=== PATIENT | female | born 1990 | race Caucasian/White ===

== ENCOUNTER 2017-01-24 23:16 | Emergency (ER) | payer BC ==
[2017-01-24 23:23] VITALS: BP 142/78
[2017-01-25] MEDS ORDERED: LIDOCAINE 2% VISCOUS SOLN 20 ML UDCUP PO ONE (00:44)
[2017-01-25] MEDS ORDERED: MAG HYDROX/AL HYDROX/SIMETH SUSP 30 ML UDCUP PO ONE (00:44)
[2017-01-25] MEDS ORDERED: METOCLOPRAMIDE HCL ORAL SOLN 10 MG/10 ML UDCUP PO ONE (00:44)
[2017-01-25] MEDS ORDERED: FAMOTIDINE 20 MG TABLET PO ONE (00:44)
--- NOTE | 2017-01-25 00:46 | ER Document Report ---
ED General - General Chief Complaint: Shortness Of Breath Stated Complaint: HAVING A HARD TIME BREATHING Time Seen by Provider: 01/25/17 00:27 Notes: Patient is a 26-year-old female without past medical history, no use of estrogen , no prior history of DVT or pulmonary embolus who presents with 2 months of intermittent feelings of shortness of breath. Patient clarifies that it is more like she feels like her throat is tight and she cannot get a good breath as opposed to dyspnea. Symptoms are triggered by eating and lying flat. Patient admits to significant dietary indiscretions. Nothing seems to improve her symptoms. She has not seen a primary care doctor regarding today's symptoms. She denies any pleuritic pain, hemoptysis, unilateral leg swelling or syncope. No chest pain. - Related Data Allergies/Adverse Reactions: No Known Allergies Allergy (Verified 01/24/17 23:20) Past Medical History - General Information source: Patient - Social History Smoking Status: Never Smoker Frequency of alcohol use: None Drug Abuse: None Lives with: Spouse/Significant other Family History: Reviewed & Not Pertinent Renal/ Medical History: Denies: Hx Peritoneal Dialysis - Immunizations Hx Diphtheria, Pertussis, Tetanus Vaccination: - UNKNOWN Review of Systems - Review of Systems Notes: Constitutional: Negative for fever. HENT: Negative for sore throat. Eyes: Negative for visual changes. Cardiovascular: Negative for chest pain. Respiratory: Positive for shortness of breath. Gastrointestinal: Negative for abdominal pain, vomiting or diarrhea. Genitourinary: Negative for dysuria. Musculoskeletal: Negative for back pain. Skin: Negative for rash. Neurological: Negative for headaches, weakness or numbness. 10 point ROS negative except as marked above and in HPI. Physical Exam - Vital signs Vitals: Temp Pulse Resp BP Pulse Ox 97.7 F 117 H 20 142/78 H 98 01/24/17 23:21 01/24/17 23:21 01/24/17 23:21 01/24/17 23:21 01/24/17 23:21 Tachycardia resolved at the time of my assessment. Interpretation: Normal Notes: PHYSICAL EXAMINATION: GENERAL: Well-appearing, well-nourished and in no acute distress. HEAD: Atraumatic, normocephalic. EYES: Pupils equal round and reactive to light, extraocular movements intact, sclera anicteric, conjunctiva are normal. ENT: nares patent, oropharynx clear without exudates. Moist mucous membranes. NECK: Normal range of motion, supple without lymphadenopathy LUNGS: Breath sounds clear to auscultation bilaterally and equal. No wheezes rales or rhonchi. HEART: Regular rate and rhythm without murmurs ABDOMEN: Soft, nontender, normoactive bowel sounds. No guarding, no rebound. No masses appreciated. EXTREMITIES: Normal range of motion, no pitting or edema. No cyanosis. NEUROLOGICAL: No focal neurological deficits. Moves all extremities spontaneously and on command. PSYCH: Normal mood, normal affect. SKIN: Warm, Dry, normal turgor, no rashes or lesions noted. Course - Re-evaluation Re-evalutation: 01/25/17 00:44 Presentation of intermittent shortness of breath with eating over the last 2 months in an otherwise well appearing patient. Low clinical suspicion for ACS given clinical history, exam, EKG without ST elevations or depressions. PE also seems unlikely given clinical history, absence of tachycardia or dyspnea. Of note, in triage patient had a recorded heart rate of 121. Patient notes that she is extremely nervous in triage and at time of my assessment her heart rate recorded at the bedside is 82 bpm. Will rely on this heart rate given her history of feeling anxious in triage. Patient is PERC criteria negative. CXR without evidence of pneumothorax or pneumonia. No widened mediastinum. Aortic dissection also seems unlikely given history, symmetric pulses, CXR, and vitals. Overall patient's clinical history appears to be most consistent with reflux esophagitis as she reports that her sensation of difficulty breathing is more like being unable to clear mucus from her throat and a feeling of throat tightness as opposed to any actual chest discomfort or feeling that she cannot get air in. She denies any pleuritic pain. No use of estrogen and no history of DVT or pulmonary embolus. She has had improvement of her symptoms here with famotidine and a GI cocktail. At this time will discharge with return precautions and follow-up recommendations. Verbal discharge instructions given a the bedside and opportunity for questions given. Medication warnings reviewed. Patient is in agreement with this plan and has verbalized understanding of return precautions and the need for primary care follow-up in the next 24-72 hours. - Vital Signs Vital signs: Temp Pulse Resp BP Pulse Ox 97.7 F 117 H 20 142/78 H 98 01/24/17 23:21 01/24/17 23:21 01/24/17 23:21 01/24/17 23:21 01/24/17 23:21 - Diagnostic Test Radiology reviewed: Image reviewed, Reports reviewed Radiology results interpreted by me: 01/25/17 02:04 Chest x-ray: No acute infiltrate or pneumothorax - EKG Interpretation by Me Additional EKG results interpreted by me: 01/25/17 02:04 Normal sinus rhythm. Rate 72. No ST elevations or depressions. QTC is 381. Discharge - Discharge Clinical Impression: Shortness of breath Esophageal reflux Qualifiers: Esophagitis presence: esophagitis presence not specified Qualified Code(s): K21.9 - Gastro-esophageal reflux disease without esophagitis Condition: Good Disposition: HOME, SELF-CARE Additional Instructions: Your symptoms appear to be most consistent with stomach or upper intestinal irritation. Please begin taking famotidine 40 mg in the morning and 40 mg at night. This medicine can be purchased directly [id number]. You may also take medicine such as Pepto-Bismol or Tums to assist with your pain. Please return to emergency department immediately if you have worsening of your pain, shortness of breath, vomiting, become unable to exert yourself due to pain or difficulty breathing, you pass out, or have any pain that radiates into your arms, jaw, or back. Please also return if you have any additional symptoms that are concerning to you.
--- NOTE | 2017-01-25 01:53 | RADIOLOGY REPORT (SQ) ---
EXAM DESCRIPTION: CHEST SINGLE VIEW COMPLETED DATE/TIME: 01/25/2017 1:36 am REASON FOR STUDY: sob COMPARISON: None. EXAM PARAMETERS: NUMBER OF VIEWS: One view. TECHNIQUE: Single frontal radiographic view of the chest acquired. RADIATION DOSE: NA LIMITATIONS: None. FINDINGS: LUNGS AND PLEURA: No consolidation, pneumothorax or pleural effusion. MEDIASTINUM AND HILAR STRUCTURES: No masses. Contour normal. HEART AND VASCULAR STRUCTURES: Heart normal in size. No overt vascular congestion. BONES: No acute findings. HARDWARE: None in the chest. IMPRESSION: No acute radiographic finding in the chest. TECHNICAL DOCUMENTATION: JOB ID: [id number]
--- NOTE | 2017-01-25 09:39 | EKG REPORT ---
SEVERITY:- NORMAL ECG - SINUS RHYTHM : Confirmed by: Sumit Escalante 25-Jan-2017 09:39:24
== END 2017-01-25 02:20 | disposition home or self-care (01) ==
LOC: ER 23:16
DX: K21.9 Gastro-esophageal reflux disease without esophagitis (principal); R06.02 Shortness of breath
CPT/HCPCS: 93005; 99285; 71010; 93010; J3490